=== PATIENT | born 1985 | race Asian ===

== ENCOUNTER → 2020-10-24 14:34 | Outpatient (CLI) | payer BC, SELFPAY ==
[2020-10-24] MEDS: COVID-19 VACC #1, MRNA(MOD) 100 MCG/0.5 ML VIAL IM (14:41)
== END ==
PROVIDERS: Visit Provider Internal Medicine
DX: Z23 Encounter for immunization (principal)
CPT/HCPCS: 0011A; 91301

== ENCOUNTER → 2020-11-21 14:33 | Outpatient (CLI) | payer BC, SELFPAY ==
[2020-11-21] MEDS: COVID-19 VACC #2, MRNA(MOD) 100 MCG/0.5 ML VIAL IM (14:37)
== END ==
PROVIDERS: Visit Provider Internal Medicine
DX: Z23 Encounter for immunization (principal)
CPT/HCPCS: 0012A; 91301